=== PATIENT | female | born 1990 | race Two or more races ===

== ENCOUNTER 2017-10-06 15:29 | Emergency (ER) | payer OTHER ==
[~2017-10-06] VITALS: Ht 167.6 cm; Wt 90.7 kg
[2017-10-06] MEDS ORDERED: NKM (16:11)
--- NOTE | 2017-10-06 16:27 | Emergency Room Report ---
History of Present Illness General Chief Complaint: Female Urogenital Problems Source: Patient Present Illness HPI 27-year-old female patient presents ER complaining of vaginal discharge x3 days. Patient being seen in ER for urinary symptoms; reports sexually monogamous relationship. Patient reports green discharge and foul smell. Denies fever, hematuria, frequency, urgency. Denies back pain, abdominal pain, vaginal rash. Reports on control, Implanon. Denies chest pain, SOB, abdominal pain. Allergies: Coded Allergies: No Known Allergies (Unverified , 10/06/17) Patient History Past Medical History: see triage record Last Menstrual Period: FEB 2017 Reviewed Nursing Documentation: PMH: Agreed, PSxH: Agreed Nursing Documentation-PMH Past Medical History: No Stated History Review of Systems All Other Systems: negative except mentioned in HPI Physical Exam Vital Signs Date Time Temp Pulse Resp B/P (MAP) Pulse Ox O2 Delivery O2 Flow Rate FiO2 10/06/17 16:03 98.6 80 16 114/68 98 Room Air 98.6 Sp02 EP Interpretation: reviewed, normal General Appearance: well appearing, no apparent distress, alert, GCS 15 Head: normocephalic, atraumatic Eyes: bilateral eye normal inspection, bilateral eye PERRL ENT: hearing grossly normal, normal pharynx, no angioedema, normal voice, uvula midline, moist mucus membranes Neck: full range of motion Respiratory: lungs clear, normal breath sounds, no rhonchi, no respiratory distress, no accessory muscle use, no wheezing, speaking full sentences Cardiovascular #1: regular rate, rhythm Gastrointestinal: non tender, soft, no mass, non-distended, no guarding, no rebound Genitourinary: no CVA tenderness Musculoskeletal: back normal, digits/nails normal, gait/station normal, normal range of motion, non-tender Neurologic: alert, oriented x3, responsive, motor strength/tone normal, sensory intact Psychiatric: mood/affect normal Skin: no rash Lymphatic: no adenopathy Medical Decision Making PA Attestation Dr. Little is my supervising Physician whom patient management has been discussed with Diagnostic Impression: Primary Impression: Urinary tract infection Additional Impression: Bacterial vaginosis ER Course Pt presents to ED c/o urinary symptoms. DDX considered but are not limited to cystitis, pyelonephritis, STI, vaginitis, , BV. VITAL SIGNS are WNL, patient is afebrile. ORDERS: UA with reflux Urine ER COURSE UA results indicate UTI possible UTI, with symptoms, will treat with abx. Urine negative Discuss results with patient. Will treat bacterial vaginosis symptomatically. Discharge: -Rx provided for Bactrim. -Rx provided for Flagy. Do not drink while on medication. Patient is resting comfortably in chair, nontoxic appearing, in no acute distress. Patient states they feel better and is ready to go home. Will provide with patient care instructions and any necessary prescriptions. Patient encouraged to drink plenty of fluids. Patient to take medication as instructed. Care plan and follow-up instructions provided. Patient questions asked and answered. Reports understanding and agreement to treatment plan. Patient instructed to follow-up with primary care provider in 3 - 5 days for further testing and treatment. May need STI testing. ER precautions given. Patient instructed to return to ER immediately for any new or worsening of symptoms. Including but not limited to fever, worsening pain , intractable vomiting. Labs Test 10/06/17 16:50 Urine Color Pale yellow Urine Appearance Clear Urine pH 7 (4.5-8.0) Urine Specific [place] 1.010 (1.005-1.035) Urine Protein Negative (NEGATIVE) Urine Glucose (UA) Negative (NEGATIVE) Urine Ketones Negative (NEGATIVE) Urine Occult Blood 2+ (NEGATIVE) Urine Nitrite Negative (NEGATIVE) Urine Bilirubin Negative (NEGATIVE) Urine Urobilinogen Normal MG/DL (0.0-1.0) Urine Leukocyte Esterase 1+ (NEGATIVE) Urine RBC 2-4 /HPF (0 - 2) Urine WBC 0-2 /HPF (0 - 2) Urine Squamous Epithelial Cells Few /LPF (NONE/OCC) Urine Bacteria Few /HPF (NONE) Urine HCG, Qualitative Negative Last Vital Signs Date Time Temp Pulse Resp B/P (MAP) Pulse Ox O2 Delivery O2 Flow Rate FiO2 10/06/17 16:03 98.6 80 16 114/68 98 Room Air 98.6 Disposition: HOME, SELF-CARE Condition: Stable Scripts Metronidazole* (FLAGYL*) 500 Mg Tablet 500 MG ORAL EVERY 12 HOURS for 7 Days, #14 TAB Prov: Chip Alcaraz P.A. 10/06/17 Trimethoprim/Sulfamethoxazole 160/800* (BACTRIM DS TABLET*) 1 Each Tablet 1 TAB ORAL TWICE A DAY for 7 Days, #14 TAB Prov: Chip Alcaraz 10/06/17 Patient Instructions: Bacterial Vaginosis, [id number], Urinary Tract Infection Additional Instructions: Followup with primary care provider in 3 -5 days. Do not drink alcohol with Flagyl, will cause adverse reaction. Take medications as directed. Patient questions asked and answered. ER precautions given, patient instructed to return to ER immediately for any new or worsening of symptoms. Chip Alcaraz Oct 06, 2017 16:27
[2017-10-06 17:08] LABS: APPEARANCE,URINE CLEAR; BILIRUBIN, URINE NEGATIVE (NEGATIVE); COLOR,URINE PALE YELLOW; GLUCOSE, URINE (UA) NEGATIVE (NEGATIVE); KETONES,URINE NEGATIVE (NEGATIVE); LEUKOCYTE ESTERASE ,URINE 1+ (NEGATIVE); NITRITE,URINE NEGATIVE (NEGATIVE); PH,URINE 7 (4.5-8.0); PROTEIN,URINE NEGATIVE (NEGATIVE); UROBILINOGEN,URINE NORMAL MG/DL (0.0-1.0)
[2017-10-06] MEDS ORDERED: BACTRIM DS TAB1 EAC1 ORAL (17:13)
[2017-10-06] MEDS ORDERED: METRONIDAZOLE500 MG ORAL (17:13)
[2017-10-06 17:45] VITALS: BP_SYST 114; BP_SYST 119; BP_DIAS 68; BP_DIAS 72
== END 2017-10-06 17:45 | disposition home or self-care (01) ==
LOC: EMR 16:27
DX: N76.0 Acute vaginitis (principal); B96.89 Other specified bacterial agents as the cause of diseases classified elsewhere
CPT/HCPCS: 81003; 81025; 99284

== ENCOUNTER 2017-10-14 18:30 | Emergency (ER) | payer OTHER ==
[~2017-10-14] VITALS: Ht 165.1 cm; Wt 90.7 kg
[~2017-10-14 18:30] MED LIST: BACTRIM DS TAB1 EAC1 ORAL; METRONIDAZOLE500 MG ORAL; NKM
--- NOTE | 2017-10-14 19:01 | Emergency Room Report ---
History of Present Illness General Chief Complaint: General Complaint Source: Patient Present Illness HPI 27-year-old female presents to the emergency department complaining of 10 out of 10 in severity pain in the left breast 2 days. Patient describes pain as burning sensation that radiates towards the armpit on the left side. Patient also reports thickened white nipple discharge. Patient reports that she is not currently breast-feeding but she continues to pump from her left breast twice a week as she continues to produce milk out of [place]. Patient states that her right breast right up shortly after . Patient reports some erythema majority of the tenderness being localized to the left nipple. Denies rashes. She denies fevers or chills however she reports she is beginning to get a headache. Denies CP, Palpitations, LOC, AMS, dizziness, Changes in Vision, Sensation, paresthesias, or a sudden severe headache. Denies familial hx of breast cancer. Allergies: Coded Allergies: No Known Allergies (Unverified , 10/06/17) Patient History Past Medical History: see triage record Past Surgical History: none Pertinent Family History: none Last Menstrual Period: 2014 has norplant Reviewed Nursing Documentation: PMH: Agreed, PSxH: Agreed Nursing Documentation-PMH Past Medical History: No Stated History Review of Systems All Other Systems: negative except mentioned in HPI Physical Exam Vital Signs Date Time Temp Pulse Resp B/P (MAP) Pulse Ox O2 Delivery O2 Flow Rate FiO2 10/14/17 18:35 98.1 77 16 108/64 100 Room Air 98.1 Sp02 EP Interpretation: reviewed, normal General Appearance: no apparent distress, alert, GCS 15, non-toxic Head: normocephalic, atraumatic ENT: hearing grossly normal, normal voice Neck: full range of motion Respiratory: lungs clear, normal breath sounds, speaking full sentences, other - TTP to the ST of the left breast, mild increased warmth to palpation, moderate sensitivity to the left nipple, thickened white d/c is expressed from nipple with moderate manual manipulation by the pt. scant erythema about the nipple. no streaking or LAD. Cardiovascular #1: regular rate, rhythm Gastrointestinal: normal bowel sounds, non tender, soft Rectal: deferred Musculoskeletal: back normal, gait/station normal, normal range of motion, non- tender Neurologic: alert, oriented x3, responsive, motor strength/tone normal, sensory intact, speech normal, grossly normal Psychiatric: judgement/insight normal Skin: no rash, warm/dry, well hydrated, other - Left Breast: mild increased warmth to palpation, moderate sensitivity to the left nipple, thickened white d/ c is expressed from nipple with moderate manual manipulation by the pt. scant erythema about the nipple. no streaking or LAD. Lymphatic: no adenopathy Medical Decision Making PA Attestation Dr. Champion is my supervising Physician whom patient management has been discussed with. Diagnostic Impression: Primary Impression: Mastitis in female ER Course 27-year-old female presents to the emergency department complaining of 10 out of 10 in severity pain in the left breast 2 days. Patient describes pain as burning sensation that radiates towards the armpit on the left side. Patient also reports thickened white nipple discharge. Patient reports that she is not currently breast-feeding but she continues to pump from her left breast twice a week as she continues to produce milk out of [place]. Patient states that her right breast right up shortly after . Patient reports some erythema majority of the tenderness being localized to the left nipple. Denies rashes. She denies fevers or chills however she reports she is beginning to get a headache. Denies CP, Palpitations, LOC, AMS, dizziness, Changes in Vision, Sensation, paresthesias, or a sudden severe headache. Denies familial hx of breast cancer. Ddx considered but are not limited to cellulitis, abscess, mastitis, shingles, malignancy just to name a few. Vital signs: are WNL, pt. is afebrile H&PE are most consistent with mastitis of the left breast. ORDERS: none required at this time, the diagnosis is clinical ED INTERVENTIONS: None required at this time. d/w pt. very important to follow up with PMD and OBGYN. If her symptoms persist she may need breast US. DISCHARGE: At this time pt. is stable for d/c to home. Will provide printed patient care instructions, and any necessary prescriptions. Care plan and follow up instructions have been discussed with the patient prior to discharge. Last Vital Signs Date Time Temp Pulse Resp B/P (MAP) Pulse Ox O2 Delivery O2 Flow Rate FiO2 10/14/17 18:35 98.1 77 16 108/64 100 Room Air 98.1 Disposition: HOME, SELF-CARE Condition: Stable Scripts Hydrocodone Bit/Acetaminophen 5-325* (NORCO 5-325*) 1 Each Tablet 1 TAB ORAL Q6H Y for For Pain, #4 TAB 0 Refills Prov: Twyla Martinez 10/14/17 Ibuprofen* (MOTRIN*) 600 Mg Tablet 600 MG ORAL THREE TIMES A DAY, #20 TAB 0 Refills Prov: Twyla Martinez 10/14/17 Dicloxacillin Sodium (Dicloxacillin Sodium) 500 Mg Capsule 500 MG ORAL Q6H for 7 Days, #28 CAP 0 Refills Prov: Twyla Martinez 10/14/17 Patient Instructions: Mastitis Additional Instructions: Take medications as directed. Follow up with a Primary Care Provider in 3-5 days, even if your symptoms have resolved. --Please review list of primary care clinics, if you do not already have a primary care provider Return sooner to ED if new symptoms occur, or current symptoms become worse. Do not drink alcohol, drive, or operate heavy machinery while taking [place] as this may cause drowsiness. - Please note that this Emergency Department Report was dictated using [employer] technology software, occasionally this can lead to erroneous entry secondary to interpretation by the dictation equipment. Twyla Martinez Oct 14, 2017 19:01
[2017-10-14 19:07] VITALS: BP 108/64
[2017-10-14] MEDS ORDERED: NORCO 5-325 TA1 EACH ORAL (19:11)
[2017-10-14] MEDS ORDERED: DICLOXACILLIN500 MG ORAL (19:11)
[2017-10-14] MEDS ORDERED: IBUPROFEN600 MG ORAL (19:11)
[2017-10-14 19:21] VITALS: BP 108/64
== END 2017-10-14 19:25 | disposition home or self-care (01) ==
LOC: EMR 18:46
DX: N61.0 Mastitis without abscess (principal)
CPT/HCPCS: 99284

== ENCOUNTER 2017-12-22 09:15 | Emergency (ER) | payer OTHER ==
[~2017-12-22] VITALS: Ht 152.4 cm; Wt 77.1 kg
[~2017-12-22 09:15] MED LIST changes: +DICLOXACILLIN500 MG ORAL; +IBUPROFEN600 MG ORAL; +NORCO 5-325 TA1 EACH ORAL
[2017-12-22 09:24] VITALS: BP 122/74
[2017-12-22] MEDS ORDERED: NKM (09:27)
[2017-12-22] MEDS ORDERED: AMOXICILLIN500 MG ORAL (10:06)
[2017-12-22] MEDS ORDERED: PROMETHAZINE-C118 M1 ORAL (10:06)
[2017-12-22 10:12] VITALS: BP 124/71
--- NOTE | 2017-12-22 14:46 | Emergency Room Report ---
History of Present Illness General Chief Complaint: Upper Respiratory Illness Source: Patient Present Illness HPI 27-year-old female presents ED complaining of cough and congestion 3 days. States that her daughter got her sick. Cough is productive with yellowish phlegm. Describes fever and chills. Afebrile in triage. Denies recent travel. No other aggravating relieving factors. Denies any other associated symptoms Allergies: Coded Allergies: No Known Allergies (Unverified , 10/06/17) Patient History Past Medical History: none Past Surgical History: none Pertinent Family History: none Social History: Denies: smoking, alcohol use, drug use Last Menstrual Period: on control pill Now: No Immunizations: UTD Reviewed Nursing Documentation: PMH: Agreed; PSxH: Agreed Nursing Documentation-PMH Past Medical History: No Stated History Review of Systems All Other Systems: negative except mentioned in HPI Physical Exam Vital Signs Date Time Temp Pulse Resp B/P (MAP) Pulse Ox O2 Delivery O2 Flow Rate FiO2 12/22/17 09:24 83 18 Room Air 12/22/17 09:24 98.0 122/74 98 98.1 Sp02 EP Interpretation: reviewed, normal General Appearance: no apparent distress, alert, GCS 15, non-toxic Head: normocephalic, atraumatic Eyes: bilateral eye normal inspection, bilateral eye PERRL ENT: hearing grossly normal, no angioedema, normal voice, pharyngeal erythema Neck: full range of motion, supple/symm/no masses Respiratory: chest non-tender, normal breath sounds, crackles, speaking full sentences Cardiovascular #1: regular rate, rhythm, no edema Cardiovascular #2: 2+ carotid (R), 2+ carotid (L), 2+ radial (R), 2+ radial (L) , 2+ dorsalis pedis (R), 2+ dorsalis pedis (L) Gastrointestinal: normal bowel sounds, non tender, soft, non-distended, no guarding, no rebound Rectal: deferred Genitourinary: normal inspection, no CVA tenderness Musculoskeletal: back normal, gait/station normal, normal range of motion, non- tender Neurologic: alert, oriented x3, responsive, motor strength/tone normal, sensory intact, speech normal Psychiatric: judgement/insight normal, memory normal, mood/affect normal, no suicidal/homicidal ideation Reflexes: 3+ bicep (R), 3+ bicep (L), 3+ tricep (R), 3+ tricep (L), 3+ knee (R) , 3+ knee (L) Skin: normal color, no rash, warm/dry, well hydrated Lymphatic: no adenopathy Medical Decision Making Diagnostic Impression: Primary Impression: Atypical pneumonia ER Course Hospital Course 27-year-old female presents ED complaining of chills, cough Differential diagnoses include: URI, pharyngitis, otitis media, asthma Clinical course Patient placed on stretcher. After initial history, physical exam reveals a female in no acute distress. Bilateral TM unremarkable. + pharyngeal erythema. No tonsillar exudates. No lymphadenopathy. Some crackles in bilateral lower lung erickson While her daughter is also here. Daughter symptoms appear very mild and very typical of a URI. I do not believe the daughter requires any symptomatic treatment. however the mother has a very aggressive cough, with some crackles on exam. We'll treat her for atypical pneumonia Diagnosis - atypical pneumonia Stable and discharged home with Rx amoxicillin, Promethazine/codeine. Instructed to followup with PMD. Return to ED if symptoms recur or worsen Last Vital Signs Date Time Temp Pulse Resp B/P (MAP) Pulse Ox O2 Delivery O2 Flow Rate FiO2 12/22/17 10:12 98.3 80 16 124/71 100 Room Air 98.0 Status: improved Disposition: HOME, SELF-CARE Condition: Stable Scripts Amoxicillin* (AMOXIL*) 500 Mg Capsule 500 MG ORAL THREE TIMES A DAY, #21 CAP Prov: Medhat Little MD 12/22/17 Codeine/Promethazine Hcl* (PROMETHAZINE-CODEINE SYRUP*) 118 Ml Syrup 5 ML ORAL Q6H PRN for For Cough, #118 ML 0 Refills Prov: Medhat Little MD 12/22/17 Patient Instructions: Community-Acquired Pneumonia, Adult, [id number] Medhat Little MD December 22, 2017 14:46
== END 2017-12-22 10:13 | disposition home or self-care (01) ==
LOC: EMR 09:42
DX: J18.9 Pneumonia, unspecified organism (principal)
CPT/HCPCS: 99284

== ENCOUNTER 2017-12-29 19:21 | Emergency (ER) | payer OTHER ==
[~2017-12-29] VITALS: Ht 162.6 cm; Wt 117.9 kg
[~2017-12-29 19:21] MED LIST changes: +AMOXICILLIN500 MG ORAL; +PROMETHAZINE-C118 M1 ORAL
[2017-12-29] MEDS ORDERED: FLUTICASONE PRO16 G1 NASAL (20:05)
[2017-12-29] MEDS ORDERED: TESSALON PERLE100 MG ORAL (20:05)
[2017-12-29] MEDS ORDERED: PROMETHAZINE-C118 M1 ORAL (20:05)
[2017-12-29] MEDS ORDERED: CLARITIN10 M2 ORAL (20:05)
[2017-12-29] MEDS ORDERED: MEDROL4 MG ORAL (20:06)
--- NOTE | 2017-12-29 20:07 | Emergency Room Report ---
History of Present Illness General Chief Complaint: Headache Source: Patient Present Illness HPI 27-year-old female patient presents ER complaining of cough and nasal congestion for the past 3 days. Patient reports that she was seen in the ER week and a half ago for atypical pneumonia, reports she was given cough medication and antibiotics, states she completed both courses. Reports coughing symptoms temporarily improved but have returned. Requesting further cough medication. Denies fever. Denies hemoptysis. Denies history of asthma or other disease. Reports coughing up sputum. Reports cough worse at night. Denies vision changes, chest pain, abdominal pain, vomiting, diarrhea. Denies tinnitus or ear pain. patient reports cough is to headache. reports headache is all over head. Denies calf pain. Allergies: Coded Allergies: No Known Allergies (Unverified , 10/06/17) Patient History Past Medical History: see triage record Reviewed Nursing Documentation: PMH: Agreed; PSxH: Agreed Nursing Documentation-PMH Past Medical History: No Stated History Review of Systems All Other Systems: negative except mentioned in HPI Physical Exam Vital Signs Date Time Temp Pulse Resp B/P (MAP) Pulse Ox O2 Delivery O2 Flow Rate FiO2 12/29/17 19:31 98.9 83 16 96 Room Air 99.0 Sp02 EP Interpretation: reviewed, normal General Appearance: well appearing, no apparent distress, alert, GCS 15, non- toxic Head: normocephalic, atraumatic, other - no maxillary or frontal sinus tenderness to palpation bilaterally Eyes: bilateral eye normal inspection, bilateral eye PERRL ENT: hearing grossly normal, normal pharynx, no angioedema, normal voice, TMs + canals normal, uvula midline, moist mucus membranes, nasal congestion Neck: full range of motion, no meningismus, no bony tend Respiratory: lungs clear, normal breath sounds, no rhonchi, no respiratory distress, no accessory muscle use, no wheezing, speaking full sentences Cardiovascular #1: regular rate, rhythm, no edema Musculoskeletal: back normal, digits/nails normal, gait/station normal, normal range of motion, non-tender, no calf tenderness, Blair's Sign negative Neurologic: alert, oriented x3, responsive, motor strength/tone normal, sensory intact Psychiatric: mood/affect normal Skin: no rash Lymphatic: no adenopathy Medical Decision Making PA Attestation Dr. Atkinson is my supervising Physician whom patient management has been discussed with. Diagnostic Impression: Primary Impression: Nasal congestion Additional Impression: Cough ER Course Pt presents to ED c/o cough and congestion. DDX considered but are not limited to viral URI, strep throat, rhinitis, sinusitis, otitis media. Uvula midline, no stridor, low suspicion for peritonsillar abscess. Patient lungs clear to auscultation, no wheezes, rhonci or rales, no absent breath sounds, no stridor, no tracheal deviation, no SOB. Low suspicion for pneumonia or pneumothorax, will not order CXR at this time. VITAL SIGNS are WNL patient is afebrile Ordered ER COURSE: TMs nonerythematous, no effusion, light reflex intact, no TM perforation, bilaterally. Salt water gargles for sore throat. patient afebrile, lungs clear to auscultation, unlikely symptoms of pneumonia still present from previous visit. Do not believe the patient requires further antibiotic treatment at this time. Due to continued symptoms of cough will provide Medrol Dosepak patient. Consult with Dr. Atkinson, agrees with treatment plan. Symptoms of cough likely related to congestion, cough and congestion likely leading to patient experiencing headache. Do not believe the patient requires further imaging or labs at this time. Will treat patient symptomatically. Patient neurovascularly intact, no nuchal rigidity, does not require CT of head , no focal neural deficits, low suspicion for meningitis. Followup with PCP for further treatment and/or referral as needed. DISCHARGE: -Rx given for Medrol dose pack -Rx given for Loratadine -Rx given for Promethazine with codeine syrup for cough sx. -Rx given for Tessalon pearls take Tylenol for pain and inflammation symptoms. At this time pt is stable for d/c to home. Patient is resting comfortably, in no acute distress, nontoxic appearing. Patient to take medications as instructed Will provide with patient care instructions and any necessary prescriptions. Care plan and follow-up instructions provided. Patient instructed to follow-up with primary care provider in 3 - 5 days. Patient questions asked and answered. Patient reports understanding and agreement to treatment plan. ER precautions given. Patient instructed to return to ER immediately for any new or worsening of symptoms including but not limited to increasing SOB, persistent fever, intractable vomiting. - Please note that this Emergency Department Report was dictated using [employer] sl[employer] technology software, occasionally this can lead to erroneous entry secondary to interpretation by the dictation equipment. Last Vital Signs Date Time Temp Pulse Resp B/P (MAP) Pulse Ox O2 Delivery O2 Flow Rate FiO2 12/29/17 19:31 98.9 83 16 96 Room Air 99.0 Disposition: HOME, SELF-CARE Condition: Stable Scripts Methylprednisolone* (MEDROL*) 4 Mg Tablet 4 MG ORAL DAILY, #10 TAB 0 Refills Prov: Chip Alcaraz 12/29/17 Loratadine (CLARITIN) 10 Mg Capsule 10 MG ORAL DAILY, #20 CAP Prov: Chip Alcaraz 12/29/17 Benzonatate* (TESSALON PERLE*) 100 Mg Capsule 100 MG ORAL THREE TIMES A DAY, #30 PERLE Prov: Chip Alcaraz 12/29/17 Codeine/Promethazine Hcl* (PROMETHAZINE-CODEINE SYRUP*) 118 Ml Syrup 5 ML ORAL Q6H PRN for For Cough, #100 ML 0 Refills Prov: Chip Alcaraz 12/29/17 Patient Instructions: Allergic Rhinitis, Cough, Adult, [id number], Sinus Headache Additional Instructions: Followup with primary care provider in 2-3 days. Take medications as directed. Patient questions asked and answered. ER precautions given, patient instructed to return to ER immediately for any new or worsening of symptoms. Chip Alcaraz Dec 29, 2017 20:07
[2017-12-29] MEDS ORDERED: Promethazine Plain 6.25mg/5ml ORAL ONE (20:15)
[2017-12-29 20:22] VITALS: BP 133/89
[2017-12-29 20:33] VITALS: BP 133/89
== END 2017-12-29 20:25 | disposition home or self-care (01) ==
LOC: EMR 19:52
DX: R09.81 Nasal congestion (principal); R05 Cough
CPT/HCPCS: 99284

== ENCOUNTER 2018-02-26 10:14 | Emergency (ER) | payer OTHER ==
[~2018-02-26] VITALS: Ht 167.6 cm; Wt 86.2 kg
[~2018-02-26 10:14] MED LIST changes: +CLARITIN10 M2 ORAL; +FLUTICASONE PRO16 G1 NASAL; +MEDROL4 MG ORAL; +TESSALON PERLE100 MG ORAL
[2018-02-26] MEDS ORDERED: NKM (10:24)
[2018-02-26 10:32] VITALS: BP 115/67
[2018-02-26 11:02] LABS: BASOPHILS % (AUTO) 1.1 % (0.0-2.0); EOSINOPHILS % (AUTO) 1.1 % (0.0-3.0); HEMOGLOBIN 15.8 G/DL (12.0-16.0); MEAN CORPUSCULAR VOLUME 89 FL (80-99); MONOCYTES % (AUTO) 5.6 % (1.0-10.0); NEUTROPHILS % (AUTO) 55.2 % (45.0-75.0); PLATELET COUNT 220 K/UL (150-450); RED BLOOD COUNT 5.19 M/UL (4.20-5.40); RED CELL DISTRIBUTION WIDTH 10.6 % (11.6-14.8); WHITE BLOOD COUNT 6.6 K/UL (4.8-10.8)
[2018-02-26 11:03] LABS: APPEARANCE,URINE CLEAR; BILIRUBIN, URINE NEGATIVE (NEGATIVE); COLOR,URINE PALE YELLOW; GLUCOSE, URINE (UA) NEGATIVE (NEGATIVE); KETONES,URINE NEGATIVE (NEGATIVE); LEUKOCYTE ESTERASE ,URINE 1+ (NEGATIVE); NITRITE,URINE NEGATIVE (NEGATIVE); PH,URINE 6 (4.5-8.0); PROTEIN,URINE NEGATIVE (NEGATIVE); UROBILINOGEN,URINE NORMAL MG/DL (0.0-1.0)
--- NOTE | 2018-02-26 11:08 | Emergency Room Report ---
History of Present Illness General Chief Complaint: Abdominal Pain Source: Patient Present Illness HPI 27yo F p/w 3 days of epigastric severe, sharp pain, similar to something she had 3 yrs ago. She has also had n/v, but normal BMs, no urinary or gynecologic symptoms, no f/c. She's not tried any meds for it, can't think of alleviating/ exacerbating factors. Allergies: Coded Allergies: No Known Allergies (Unverified , 10/06/17) Patient History Past Medical History: see triage record Now: No Reviewed Nursing Documentation: PMH: Agreed; PSxH: Agreed Nursing Documentation-PMH Past Medical History: No Stated History Review of Systems All Other Systems: negative except mentioned in HPI Physical Exam Vital Signs Date Time Temp Pulse Resp B/P (MAP) Pulse Ox O2 Delivery O2 Flow Rate FiO2 02/26/18 10:18 98.4 66 22 115/67 99 Room Air 98.4 Sp02 EP Interpretation: reviewed, normal General Appearance: no apparent distress, alert, non-toxic Head: normocephalic Eyes: bilateral eye normal inspection, bilateral eye PERRL, bilateral eye EOMI ENT: normal ENT inspection, hearing grossly normal, normal pharynx, no angioedema, normal voice, moist mucus membranes Neck: normal inspection, full range of motion, supple, supple/symm/no masses Respiratory: chest non-tender, lungs clear, normal breath sounds, chest symmetrical, palpation of chest normal Cardiovascular #1: normal peripheral pulses, regular rate, rhythm Cardiovascular #2: 2+ radial (R), 2+ radial (L) Gastrointestinal: normal inspection, soft, no mass, no guarding, no rebound, tenderness - epigastric tenderness Rectal: deferred Genitourinary: normal inspection, no CVA tenderness Musculoskeletal: back normal, gait/station normal, normal range of motion, non- tender, no calf tenderness Neurologic: alert, responsive, machine guide base winder III-XII nml as tested, motor strength/tone normal, sensory intact, speech normal Psychiatric: judgement/insight normal, memory normal, mood/affect normal, no suicidal/homicidal ideation Skin: normal color, no rash, warm/dry, normal turgor Lymphatic: no adenopathy Medical Decision Making Diagnostic Impression: Primary Impression: Fatty liver ER Course Patient well-appearing, minimal epigastric tenderness, UNREMARKABLE LABS UNREMARKABLE BRAIN CT NEGATIVE URINALYSIS UNREMARKABLE, WILL DISCHARGE HOME WITH DIAGNOSIS OF FATTY LIVER, RECOMMEND PMD FOLLOW-UP. CT/MRI/US Diagnostic Results CT/MRI/US Diagnostic Results : Imaging Test Ordered: US limited/abdomen Impression fatty liver, no gallstones, normal GB, normal CBD Last Vital Signs Date Time Temp Pulse Resp B/P (MAP) Pulse Ox O2 Delivery O2 Flow Rate FiO2 02/26/18 10:32 98.4 66 22 115/67 99 Room Air 98.4 Disposition: HOME, SELF-CARE Condition: Stable Referrals: Rafa GARCIA,REFERRING (PCP) KENNY RUIZ M.D Feb 26, 2018 11:08
[2018-02-26 11:26] LABS: ANION GAP 9 mmol/L (5-15); BLOOD UREA NITROGEN 9 mg/dL (7-18); CALCIUM 8.9 MG/DL (8.5-10.1); CARBON DIOXIDE 28 MMOL/L (21-32); CHLORIDE 104 MMOL/L (98-107); CREATININE 0.5 MG/DL (0.55-1.30); POTASSIUM 3.7 MMOL/L (3.5-5.1); SODIUM 141 MMOL/L (136-145)
[2018-02-26 11:31] LABS: ALANINE AMINOTRANSFERASE 43 U/L (12-78); ALKALINE PHOSPHATASE 78 U/L (46-116); ASPARTATE AMINO TRANSFERASE 21 U/L (15-37); BILIRUBIN,TOTAL 0.4 MG/DL (0.2-1.0)
[2018-02-26] MEDS ORDERED: RANITIDINE HCL150 MG ORAL (12:54)
[2018-02-26 13:01] VITALS: BP 118/72
--- NOTE | 2018-02-26 13:03 | Diagnostic Imaging Report ---
Indication: Epigastric pain Technique: US ABD Complete Comparison: None Findings: Imaged portions of the pancreatic head grossly unremarkable. The body and tail are not well seen. Liver is normal in size and contour. Hepatic echogenicity is homogeneous and within normal limits. No focal hepatic mass lesion is appreciated sonographically. No gallstones. Question trace gallbladder sludge versus artifact. There is no gallbladder wall thickening or pericholecystic fluid. Sonographic Ba's Sign reported as negative. There is no intrahepatic or extrahepatic biliary duct dilatation. The common bile duct measures 4 mm. Kidneys are symmetric in size and demonstrate normal echogenicity. There is no hydronephrosis or sonographically appreciable renal stone. Spleen is normal in size and appearance. Visualized portions of the abdominal aorta and IVC unremarkable in size. There is no ascites. IMPRESSION: Question trace gallbladder sludge versus artifact. No sonographic evidence to suggest acute cholecystitis.
== END 2018-02-26 13:02 | disposition home or self-care (01) ==
LOC: EMR 10:33
DX: K76.0 Fatty (change of) liver, not elsewhere classified (principal)
CPT/HCPCS: 36415; 76700; 80053; 81003; 83690; 84702; 85025; 96374; 96375; 99284; J2405; S0028

== ENCOUNTER 2018-11-27 11:18 | Emergency (ER) | payer OTHER ==
[~2018-11-27] VITALS: Ht 160 cm; Wt 86.2 kg
[~2018-11-27 11:18] MED LIST changes: +RANITIDINE HCL150 MG ORAL
[2018-11-27 11:35] VITALS: BP 119/78
--- NOTE | 2018-11-27 11:46 | Emergency Room Report ---
History of Present Illness General Chief Complaint: Pain Source: Patient Present Illness HPI Patient presents with 4-5 days of left knee pain. 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 She had to leave work 2 days ago after only 2 hours because she had too much pain pushing the housekeeping cart that she needs to. She's had problems with her knees in the past but never this severe. She's been taking ibuprofen 600 mg. This has not been helping and she's having difficulty sleeping. She rates the pain 6-8/10. Aching. She denies any swelling in the knee. The anterior portion and the top of the tibia where she feels the pain is not radiating towards her thigh. She denies previous arthritis and also doesn't know she has gout. Her last period was in 2014 before she had an implant after her last child was born. 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 Last Menstrual Period: 2014 Now: No Reviewed Nursing Documentation: PMH: Agreed; PSxH: Agreed Nursing Documentation-PMH Past Medical History: No Stated History Review of Systems All Other Systems: negative except mentioned in HPI Physical Exam Vital Signs Date Time Temp Pulse Resp B/P (MAP) Pulse Ox O2 Delivery O2 Flow Rate FiO2 11/27/18 11:22 97.9 70 19 96 Room Air 11/27/18 11:35 119/78 Sp02 EP Interpretation: reviewed, normal General Appearance: well appearing, no apparent distress Head: normocephalic, atraumatic Eyes: bilateral eye normal inspection, bilateral eye PERRL ENT: hearing grossly normal, normal voice, moist mucus membranes Neck: full range of motion, supple Respiratory: no respiratory distress, speaking full sentences Cardiovascular #1: regular rate, rhythm Cardiovascular #2: 2+ radial (R), 2+ dorsalis pedis (L) Gastrointestinal: normal inspection Genitourinary: no CVA tenderness Musculoskeletal: no calf tenderness, other - Knee ligaments stable with negative drawer or lateral ligament laxity. Apley's compression negative. Anterior inferior patellar ligament is tender without fluctuance, crepitance or erythema. Range of motion is near full except for complete flexion. Neurologic: alert, oriented x3, normal gait, other - Distal neuro normal Psychiatric: mood/affect normal Skin: no rash Medical Decision Making Diagnostic Impression: Primary Impression: Knee strain Qualified Codes: S86.912A - Strain of unspecified muscle(s) and tendon(s) at lower leg level, left leg, initial encounter ER Course The patient presents with left knee pain. Differential includes sprain, strain , gout, osteoarthritis amongst others. X-rays and labs are indicated. Also patient hasn't taken ibuprofen today and so she'll be given a dose. Labs unremarkable. X-ray without effusion and normal bony structures. Delta applied by me with some improvement in symptoms. Distal neurovascular checked by me and normal. Discussed treatment plan. Patient stable for outpatient observation and treatment. Laboratory Tests Test 11/27/18 11:45 White Blood Count 8.3 K/UL (4.8-10.8) Red Blood Count 5.20 M/UL (4.20-5.40) Hemoglobin 16.0 G/DL (12.0-16.0) Hematocrit 46.0 % (37.0-47.0) Mean Corpuscular Volume 88 FL (80-99) Mean Corpuscular Hemoglobin 30.7 PG (27.0-31.0) Mean Corpuscular Hemoglobin Concent 34.7 G/DL (32.0-36.0) Red Cell Distribution Width 10.9 % (11.6-14.8) L Platelet Count 244 K/UL (150-450) Mean Platelet Volume 6.7 FL (6.5-10.1) Neutrophils (%) (Auto) 56.1 % (45.0-75.0) Lymphocytes (%) (Auto) 36.6 % (20.0-45.0) Monocytes (%) (Auto) 5.6 % (1.0-10.0) Eosinophils (%) (Auto) 1.2 % (0.0-3.0) Basophils (%) (Auto) 0.5 % (0.0-2.0) Urine Color Pale yellow Urine Appearance Clear Urine pH 6 (4.5-8.0) Urine Specific [place] 1.015 (1.005-1.035) Urine Protein Negative (NEGATIVE) Urine Glucose (UA) Negative (NEGATIVE) Urine Ketones Negative (NEGATIVE) Urine Blood 2+ (NEGATIVE) H Urine Nitrite Negative (NEGATIVE) Urine Bilirubin Negative (NEGATIVE) Urine Urobilinogen Normal MG/DL (0.0-1.0) Urine Leukocyte Esterase 1+ (NEGATIVE) H Urine RBC 2-4 /HPF (0 - 2) H Urine WBC 0-2 /HPF (0 - 2) Urine Squamous Epithelial Cells Occasional /LPF Urine Bacteria Occasional /HPF (NONE) Sodium Level 141 MMOL/L (136-145) Potassium Level 4.0 MMOL/L (3.5-5.1) Chloride Level 104 MMOL/L (98-107) Carbon Dioxide Level 29 MMOL/L (21-32) Anion Gap 9 mmol/L (5-15) Blood Urea Nitrogen 17 mg/dL (7-18) Creatinine 0.6 MG/DL (0.55-1.30) Estimate Glomerular Filtration Rate > 60 mL/min (>60) Glucose Level 94 MG/DL (74-106) Uric Acid 3.0 MG/DL (2.6-7.2) Calcium Level 8.9 MG/DL (8.5-10.1) Total Bilirubin 0.2 MG/DL (0.2-1.0) Aspartate Amino Transferase (AST) 19 U/L (15-37) Alanine Aminotransferase (ALT) 41 U/L (12-78) Alkaline Phosphatase 107 U/L (46-116) Total Protein 7.9 G/DL (6.4-8.2) Albumin 3.9 G/DL (3.4-5.0) Globulin 4.0 g/dL Albumin/Globulin Ratio 1.0 (1.0-2.7) Other X-Ray Diagnostic Results Other X-Ray Diagnostic Results : X-Ray ordered: Left knee # of Views/Limited Vs Complete: 3 View Indication: Pain EP Interpretation: Yes Interpretation: no dislocation, no soft tissue swelling, no fractures Impression: No acute disease Electronically Signed by: Electronically signed by El Barajas MD Last Vital Signs Date Time Temp Pulse Resp B/P (MAP) Pulse Ox O2 Delivery O2 Flow Rate FiO2 11/27/18 14:30 97.9 70 19 119/78 96 Room Air Status: improved Disposition: HOME, SELF-CARE Condition: Improved Scripts Tramadol Hcl* (ULTRAM*) 50 Mg Tablet 50 MG ORAL Q6H PRN for For Pain, #10 TAB 0 Refills Prov: El Barajas MD 11/27/18 Naproxen* (NAPROXEN*) 375 Mg Tablet. 375 MG ORAL TID, #14 TAB 1 Refill Prov: El Barajas MD 11/27/18 El Barajas MD November 27, 2018 11:46
[2018-11-27 12:00] LABS: APPEARANCE,URINE CLEAR; BASOPHILS % (AUTO) 0.5 % (0.0-2.0); BILIRUBIN, URINE NEGATIVE (NEGATIVE); COLOR,URINE PALE YELLOW; EOSINOPHILS % (AUTO) 1.2 % (0.0-3.0); GLUCOSE, URINE (UA) NEGATIVE (NEGATIVE); KETONES,URINE NEGATIVE (NEGATIVE); LEUKOCYTE ESTERASE ,URINE 1+ (NEGATIVE); LYMPHOCYTES % (AUTO) 36.6 % (20.0-45.0); MEAN CORPUSCULAR VOLUME 88 FL (80-99); MONOCYTES % (AUTO) 5.6 % (1.0-10.0); NEUTROPHILS % (AUTO) 56.1 % (45.0-75.0); NITRITE,URINE NEGATIVE (NEGATIVE); PH,URINE 6 (4.5-8.0); PLATELET COUNT 244 K/UL (150-450); PROTEIN,URINE NEGATIVE (NEGATIVE); RED CELL DISTRIBUTION WIDTH 10.9 % (11.6-14.8); UROBILINOGEN,URINE NORMAL MG/DL (0.0-1.0); WHITE BLOOD COUNT 8.3 K/UL (4.8-10.8)
[2018-11-27 12:10] LABS: ANION GAP 9 mmol/L (5-15); BLOOD UREA NITROGEN 17 mg/dL (7-18); CALCIUM 8.9 MG/DL (8.5-10.1); CARBON DIOXIDE 29 MMOL/L (21-32); CHLORIDE 104 MMOL/L (98-107); CREATININE 0.6 MG/DL (0.55-1.30); SODIUM 141 MMOL/L (136-145)
[2018-11-27 12:14] LABS: ALANINE AMINOTRANSFERASE 41 U/L (12-78); ALBUMIN 3.9 G/DL (3.4-5.0); ALKALINE PHOSPHATASE 107 U/L (46-116); ASPARTATE AMINO TRANSFERASE 19 U/L (15-37); BILIRUBIN,TOTAL 0.2 MG/DL (0.2-1.0)
[2018-11-27] MEDS ORDERED: NAPROXEN375 M2 ORAL (12:48)
[2018-11-27] MEDS ORDERED: TRAMADOL HCL50 MG ORAL (12:48)
--- NOTE | 2018-11-27 13:44 | Diagnostic Imaging Report ---
Indications: Reason For Exam: PAIN Technique: Three views of the left knee Comparison: None Findings: No acute fractures. No dislocations. Joint spaces are preserved. No radiopaque foreign body. Normal mineralization. Impression: No acute process
[2018-11-27 14:30] VITALS: BP 119/78
== END 2018-11-27 14:30 | disposition home or self-care (01) ==
LOC: EMR 11:48
DX: S86.912A Strain of unspecified muscle(s) and tendon(s) at lower leg level, left leg, initial encounter (principal); X58.XXXA Exposure to other specified factors, initial encounter; Y92.9 Unspecified place or not applicable; Y99.0 Civilian activity done for income or pay
CPT/HCPCS: 36415; 80053; 81003; 84550; 85025; 99283

== ENCOUNTER 2018-12-04 21:02 | Emergency (ER) | payer OTHER ==
[~2018-12-04] VITALS: Ht 162.6 cm; Wt 84.4 kg
[~2018-12-04 21:02] MED LIST changes: +NAPROXEN375 M2 ORAL; +TRAMADOL HCL50 MG ORAL
--- NOTE | 2018-12-04 21:15 | NUR ---
ED Nurse Note: Patient walked in to ER from home c/o left ear pain 03/06, deny trauma, discharge. AAO x4, VSS at this time. Skin is dry intact.
[2018-12-04] MEDS ORDERED: CORTISPORIN EAR10 ML LEFT EAR (21:23)
[2018-12-04] MEDS ORDERED: IBUPROFEN600 MG ORAL (21:23)
--- NOTE | 2018-12-04 21:24 | Emergency Room Report ---
History of Present Illness General Chief Complaint: Earache Source: Patient Present Illness HPI Is a 28-year-old female with no significant past medical issue. She presents with chief complaint of left ear pain. Onset for last 2 days. There is some swelling and decreased hearing. No drainage. No fever chills but no nausea no vomiting. Pain is 8 out of 10. Worse with movement. Better with rest. No trauma. Allergies: Coded Allergies: No Known Allergies (Unverified , 10/06/17) Patient History Past Medical History: see triage record, old chart reviewed Past Surgical History: other Pertinent Family History: none Social History: Denies: smoking Last Menstrual Period: 2014 Now: No : 4 Para: 3 Immunizations: other Reviewed Nursing Documentation: PMH: Agreed; PSxH: Agreed Nursing Documentation-PMH Hx Cardiac Problems: No - 2011 Review of Systems Eye: Denies: eye pain, blurred vision ENT: Reports: ear pain; Denies: nose congestion, throat swelling Respiratory: Denies: cough, shortness of breath Cardiovascular: Denies: chest pain, palpitations Gastrointestinal: Denies: abdominal pain, diarrhea, nausea, vomiting Musculoskeletal: Denies: back pain, joint pain Skin: Denies: rash Neurological: Denies: headache, numbness Endocrine: Denies: increased thirst, increased urine Hematologic/Lymphatic: Denies: easy bruising All Other Systems: negative except mentioned in HPI Physical Exam Vital Signs Date Time Temp Pulse Resp B/P (MAP) Pulse Ox O2 Delivery O2 Flow Rate FiO2 12/04/18 21:09 99.0 71 16 96 Room Air vitals unremarkable Sp02 EP Interpretation: reviewed, normal General Appearance: well appearing, no apparent distress, alert Head: normocephalic, atraumatic Eyes: bilateral eye PERRL, bilateral eye EOMI ENT: hearing grossly normal, normal pharynx, other - Left ear: There is edema and erythema to the external canal. TMs normal. No perforation. Neck: full range of motion, supple, no meningismus Respiratory: chest non-tender, lungs clear, normal breath sounds Cardiovascular #1: regular rate, rhythm, no murmur Gastrointestinal: normal bowel sounds, non tender, no mass, no organomegaly, no bruit, non-distended Musculoskeletal: back normal, gait/station normal, normal range of motion Psychiatric: mood/affect normal Skin: warm/dry Medical Decision Making Diagnostic Impression: Primary Impression: Otitis externa, left Qualified Codes: H60.502 - Unspecified acute noninfective otitis externa, left ear ER Course Patient presents with otitis externa. No evidence of any trauma or otitis media. We'll discharge home. Last Vital Signs Date Time Temp Pulse Resp B/P (MAP) Pulse Ox O2 Delivery O2 Flow Rate FiO2 12/04/18 21:09 99.0 71 16 96 Room Air Status: improved Disposition: HOME, SELF-CARE Condition: Stable Scripts Ibuprofen* (MOTRIN*) 600 Mg Tablet 600 MG ORAL THREE TIMES A DAY, #30 TAB 0 Refills Prov: Otis Sandra MD 12/04/18 Neomycin/Polymyxin B Sulf/Hc* (CORTISPORIN EAR SOLUTION*) 10 Ml Solution 4 DROP LEFT EAR QID, #10 ML 0 Refills Prov: Otis Sandra MD 12/04/18 Patient Instructions: Otitis Externa, [id number] Additional Instructions: Follow-up with your doctor in 7 days for recheck. Return if symptom worsen. Otis Sandra MD December 04, 2018 21:24
[2018-12-04 21:25] VITALS: BP 110/74
[2018-12-04] MEDS ORDERED: HYDROcodone/Acetamin 5/325 tab ORAL ONE (21:30)
[2018-12-04 21:32] VITALS: BP 110/74
--- NOTE | 2018-12-04 21:33 | NUR ---
ED Nurse Note: Pt cleared by health care Provider for discharge. DC instructions/prescription was given and explained to pt and verbalized understanding of teachings. All medical deviecs such as ID band removed. Pt is AAO x4, ambulatory and left with all personal belongings.
== END 2018-12-04 21:37 | disposition home or self-care (01) ==
LOC: EMR 21:19
DX: H60.502 Unspecified acute noninfective otitis externa, left ear (principal)
CPT/HCPCS: 99282

== ENCOUNTER 2019-03-08 07:19 | Emergency (ER) | payer OTHER ==
[~2019-03-08] VITALS: Ht 162.6 cm; Wt 72.6 kg
[~2019-03-08 07:19] MED LIST changes: +CORTISPORIN EAR10 ML LEFT EAR
[2019-03-08 07:25] VITALS: BP 114/78
[2019-03-08] MEDS ORDERED: NKM (07:28)
[2019-03-08 07:33] VITALS: BP 114/78
--- NOTE | 2019-03-08 07:34 | NUR ---
ED Nurse Note: Pt came in from home due to L earache x 2 days. Pain 10/10 ramses. AOx4, VSS. Will cont to monitor.
--- NOTE | 2019-03-08 07:35 | NUR ---
ER DISCHARGE NOTE: Patient is cleared to be discharged per ERMD, pt is aox4, on room air, with stable vital signs. pt was given dc and prescription instructions, pt was able to verbalize understanding, pt id band removed. pt is able to ambulate with steady gait. pt took all belongings.
[2019-03-08] MEDS ORDERED: OFLOXACIN5 ML LEFT EAR (07:36)
[2019-03-08] MEDS ORDERED: TYLENOL EXTRA500 MG ORAL (07:36)
--- NOTE | 2019-03-08 08:03 | Emergency Room Report ---
History of Present Illness General Chief Complaint: Earache Source: Patient Present Illness HPI 28-year-old female presents ED for evaluation. Complaining of left ear pain for the last 3 days. Throbbing, 8 out of 10, nonradiating. Denies fevers or chills. Denies cough. States she has had previous ear infection like this. Was prescribed medication states that resolved. Denies sick contacts or recent travel. No other aggravating relieving factors. Denies any other associated symptoms Allergies: Coded Allergies: No Known Allergies (Unverified , 10/06/17) Patient History Past Medical History: none Past Surgical History: none Pertinent Family History: none Social History: Denies: smoking, alcohol use, drug use Last Menstrual Period: on period Now: No Immunizations: UTD Reviewed Nursing Documentation: PMH: Agreed; PSxH: Agreed Nursing Documentation-PMH Past Medical History: No Stated History Hx Cardiac Problems: No - 2011 Review of Systems All Other Systems: negative except mentioned in HPI Physical Exam Vital Signs Date Time Temp Pulse Resp B/P (MAP) Pulse Ox O2 Delivery O2 Flow Rate FiO2 03/08/19 07:25 98.8 70 15 114/78 (90) 99 Room Air Sp02 EP Interpretation: reviewed, normal General Appearance: no apparent distress, alert, GCS 15, non-toxic Head: normocephalic, atraumatic Eyes: bilateral eye normal inspection, bilateral eye PERRL ENT: hearing grossly normal, normal pharynx, no angioedema, normal voice, other - L ear canal erythematous/swollen. TM unremarkable Neck: full range of motion, supple, no meningismus, supple/symm/no masses Respiratory: chest non-tender, lungs clear, normal breath sounds, speaking full sentences Cardiovascular #1: normal inspection Cardiovascular #2: 2+ carotid (R), 2+ carotid (L), 2+ radial (R), 2+ radial (L) , 2+ dorsalis pedis (R), 2+ dorsalis pedis (L) Gastrointestinal: normal inspection, non-distended Rectal: deferred Genitourinary: normal inspection Musculoskeletal: normal inspection, non-tender Neurologic: alert, oriented x3, responsive, motor strength/tone normal, sensory intact, speech normal Psychiatric: judgement/insight normal, memory normal, mood/affect normal, no suicidal/homicidal ideation Reflexes: 3+ bicep (R), 3+ bicep (L), 3+ tricep (R), 3+ tricep (L), 3+ knee (R) , 3+ knee (L) Skin: no rash Lymphatic: no adenopathy Medical Decision Making Diagnostic Impression: Primary Impression: Otitis externa Qualified Codes: H60.502 - Unspecified acute noninfective otitis externa, left ear ER Course Hospital Course 28-year-old F presents to ED with pain L ear. Differential diagnoses include: TM perforation, otitis externa, otitis media Clinical course Patient placed on stretcher. After initial history, physical exam reveals a female in no acute distress. L ear canal swollen/erythematous/TTP. L TM unremarkable. remainder of exam unremarkable discussed with patient. consideration for otitis exxterna. safe for discharge with close outpatient followup. i'll provide referrals. Diagnosis - otitis externa Stable and discharged to home with Rx ofloxacin otic, tylenol. Followup with PMD/ENT. Return to ED if symptoms recur or worsen Last Vital Signs Date Time Temp Pulse Resp B/P (MAP) Pulse Ox O2 Delivery O2 Flow Rate FiO2 03/08/19 07:35 98.8 84 16 114/78 99 Room Air Status: improved Disposition: HOME, SELF-CARE Condition: Stable Scripts Acetaminophen* (TYLENOL EXTRA STRENGTH*) 500 Mg Tablet 500 MG ORAL Q8H PRN for Prn Headache/Temp > 101, #30 TAB 0 Refills Prov: Medhat Little MD 03/08/19 Ofloxacin (OFLOXACIN) 5 Ml Drops 10 DROP LEFT EAR DAILY for 7 Days, ML Prov: Medhat Little MD 03/08/19 Referrals: NON PHYSICIAN (PCP) Roland Limon MD [facility] Patient Instructions: Otitis Externa, [id number] Medhat Little MD Mar 08, 2019 08:03
== END 2019-03-08 07:40 | disposition home or self-care (01) ==
LOC: EMR 07:37
DX: H60.92 Unspecified otitis externa, left ear (principal)
CPT/HCPCS: 99282

== ENCOUNTER 2019-09-25 11:25 | Emergency (ER) | payer OTHER ==
[~2019-09-25] VITALS: Ht 167.6 cm; Wt 68.0 kg
[~2019-09-25 11:25] MED LIST changes: +OFLOXACIN5 ML LEFT EAR; +TYLENOL EXTRA500 MG ORAL
[2019-09-25 12:00] VITALS: BP 109/68
--- NOTE | 2019-09-25 12:00 | NUR ---
ED Nurse Note: Patient walked in from home c/o cough x 1 month. Denies n/v/d. Patient AxO x 4, no s/s of acute distress.
[2019-09-25] MEDS ORDERED: Ipratropium 0.02% Inh Soln 2.5ml UD HHN ONE (12:15)
[2019-09-25] MEDS ORDERED: Albuterol ud Inhalation HHN ONE (12:15)
--- NOTE | 2019-09-25 12:26 | Emergency Room Report ---
History of Present Illness General Chief Complaint: Upper Respiratory Illness Source: Patient Present Illness HPI Patient presents with 1 month of cough. The cough is been keeping her awake at night. When she coughs she has anterior chest pain that is fairly severe. There is no nausea, vomiting or diarrhea. She does not believe she is at this time. She is been treated with antihistamines. She never been told that she has asthma. She denies recent fevers or chills. She has never used an inhaler. The phlegm is white color and thick. She is exposed to dust at her work. No sore throat, palpitations, dysuria, abdominal pain, shortness of breath, joint pain, rashes, depression, anxiety, visual changes, dizziness, headache. Her daughter was seen end of July with febrile illness and upper respiratory infection. She is being seen for a cough at this time. 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 Now: No : 4 Para: 3 Reviewed Nursing Documentation: PMH: Agreed; PSxH: Agreed Nursing Documentation-PMH Past Medical History: No Stated History Hx Cardiac Problems: No - 2011 Review of Systems All Other Systems: negative except mentioned in HPI Physical Exam Vital Signs Date Time Temp Pulse Resp B/P (MAP) Pulse Ox O2 Delivery O2 Flow Rate FiO2 09/25/19 11:41 98.2 70 18 109/68 (82) 98 Room Air Sp02 EP Interpretation: reviewed, normal General Appearance: well appearing, no apparent distress, GCS 15, non-toxic Head: normocephalic Eyes: bilateral eye normal inspection ENT: moist mucus membranes Neck: supple Respiratory: no respiratory distress, wheezing - Posttussive with paroxysms Cardiovascular #1: regular rate, rhythm, no edema Cardiovascular #2: 2+ radial (R) Gastrointestinal: normal inspection, normal bowel sounds, non tender, no mass, non-distended Genitourinary: no CVA tenderness Musculoskeletal: back normal, normal range of motion, no calf tenderness, gait/ station normal Neurologic: alert, oriented x3, normal inspection Psychiatric: mood/affect normal Skin: no rash, warm/dry Medical Decision Making Diagnostic Impression: Primary Impression: Bronchospasm Additional Impression: Cough ER Course Patient presents with new onset bronchospasm. Differential includes asthma, atypical pneumonia, bronchitis allergy amongst others. Clinically the patient does not have a pulmonary embolus. Evaluation with chest x-ray. Patient treated with prednisone and DuoNeb. Chest x-ray clear. Urinalysis with some pyuria but contaminated specimen. Patient improved with breathing treatment and feels shaky. Cough is decreased. Patient taught how to use inhaler. Discussed results with patient. Discussed the need for outpatient follow-up. Discussed urinalysis results. Patient denies dysuria and does not believe she has a UTI. Told will follow up with culture results. Antibiotics not indicated at this time. Patient stable for outpatient observation and treatment. Laboratory Tests Test 09/25/19 12:15 Urine Color Pale yellow Urine Appearance Clear Urine pH 6 (4.5-8.0) Urine Specific [place] 1.015 (1.005-1.035) Urine Protein Negative (NEGATIVE) Urine Glucose (UA) Negative (NEGATIVE) Urine Ketones Negative (NEGATIVE) Urine Blood 2+ (NEGATIVE) H Urine Nitrite Negative (NEGATIVE) Urine Bilirubin Negative (NEGATIVE) Urine Urobilinogen Normal MG/DL (0.0-1.0) Urine Leukocyte Esterase 3+ (NEGATIVE) H Urine RBC 5-10 /HPF (0 - 2) H Urine WBC 10-15 /HPF (0 - 2) H Urine Squamous Epithelial Cells Many /LPF (NONE/OCC) H Urine Bacteria Many /HPF (NONE) H Urine HCG, Qualitative Negative (NEGATIVE) Chest X-Ray Diagnostic Results Chest X-Ray Diagnostic Results : Chest X-Ray Ordered: Yes # of Views/Limited/Complete: 1 View Indication: Shortness of Breath EP Interpretation: Yes Interpretation: no consolidation, no effusion, no pneumothorax Impression: No acute disease Electronically Signed by: Electronically signed by El Barajas MD Last Vital Signs Date Time Temp Pulse Resp B/P (MAP) Pulse Ox O2 Delivery O2 Flow Rate FiO2 09/25/19 13:45 98.2 78 18 109/68 100 Room Air 21 Status: improved Disposition: HOME, SELF-CARE Condition: Improved Scripts Promethazine HCl/Codeine (Prometh-Codein 6.25-10 mg/5 ml) 5 Ml Syrup 5 ML PO Q6HR, #60 ML Prov: El Barajas MD 09/25/19 Prednisone* (PREDNISONE*) 20 Mg Tablet 40 MG ORAL DAILY, #10 TAB Prov: El Barajas MD 09/25/19 Albuterol Sulfate* (ALBUTEROL SULFATE MDI*) 8.5 Gm Hfa.aer.ad 2 PUFF INH Q6H, #1 EA 0 Refills Prov: lE Barajas MD 09/25/19 Referrals: Rafa GARCIA,REFERRING (PCP) El Barajas MD Sep 25, 2019 12:26
[2019-09-25 12:55] LABS: APPEARANCE,URINE CLEAR; BILIRUBIN, URINE NEGATIVE (NEGATIVE); COLOR,URINE PALE YELLOW; GLUCOSE, URINE (UA) NEGATIVE (NEGATIVE); KETONES,URINE NEGATIVE (NEGATIVE); LEUKOCYTE ESTERASE ,URINE 3+ (NEGATIVE); NITRITE,URINE NEGATIVE (NEGATIVE); PH,URINE 6 (4.5-8.0); PROTEIN,URINE NEGATIVE (NEGATIVE); UROBILINOGEN,URINE NORMAL MG/DL (0.0-1.0)
[2019-09-25] MEDS ORDERED: PROMETH-CODEIN 65 ML PO (13:25)
[2019-09-25] MEDS ORDERED: PREDNISONE20 MG ORAL (13:25)
[2019-09-25] MEDS ORDERED: ALBUTEROL SULF8.5 GM INH (13:25)
[2019-09-25 13:45] VITALS: BP 109/68
--- NOTE | 2019-09-25 13:45 | NUR ---
ER DISCHARGE NOTE: Patient cleared for DC by Dr. Barajas, patient AxO x 4, no s/s of acute distress. Patient verbalized understanding of DC instructions. Patient ID band removed. Able to ambulate with steady gait, took all belongings.
--- NOTE | 2019-09-25 14:49 | Diagnostic Imaging Report ---
EXAM: XR Chest, 1 View CLINICAL HISTORY: COUGH TECHNIQUE: Frontal view of the chest. COMPARISON: None FINDINGS: Hardware: None. Lungs/pleura: Normal. No focal consolidation. No pleural effusion or pneumothorax. Heart/mediastinum: Normal. No cardiomegaly. Soft tissues: Unremarkable. Bones: No acute fracture. Upper abdomen: Normal. IMPRESSION: No acute disease identified.
== END 2019-09-25 13:45 | disposition home or self-care (01) ==
LOC: EMR 11:53
DX: J98.01 Acute bronchospasm (principal); R05 Cough
CPT/HCPCS: 71045; 81003; 81025; 87086; J7512; Z7502; 99284

== ENCOUNTER 2020-02-05 19:18 | Emergency (ER) | payer OTHER ==
[~2020-02-05] VITALS: Ht 167.6 cm; Wt 81.6 kg
[~2020-02-05 19:18] MED LIST changes: +ALBUTEROL SULF8.5 GM INH; +PREDNISONE20 MG ORAL; +PROMETH-CODEIN 65 ML PO
--- NOTE | 2020-02-05 19:36 | NUR ---
ED Nurse Note: Patient walked into ED from home c/o abdominal pain for 1 day, states that she has a hx of hernia, came to ED due to worsening of abdominal pain today. Patient rates constant pain at 8/10, denies n/v/d. Patient changed into gown and placed on surveillance system monitor. Urine sample collected and sent to lab. No acute distress noted during assessment.
[2020-02-05 19:38] VITALS: BP 104/80
--- NOTE | 2020-02-05 19:44 | NUR ---
ED Nurse Note: ERMD at bedside
[2020-02-05] MEDS ORDERED: Metoclopramide 10mg/2ml Inj IVP ONE (19:45)
[2020-02-05] MEDS ORDERED: Morphine Sulfate 2mg/ml Inj(IV/IM USE ONLY) IVP ONE (19:45)
[2020-02-05] MEDS ORDERED: DiphenhydrAMINE 50mg/ml Inj IVP ONE (19:45)
[2020-02-05] MEDS ORDERED: Ketorolac 30mg Inj IV ONE (19:45)
[2020-02-05 19:58] LABS: BILIRUBIN, URINE NEGATIVE (NEGATIVE); COLOR,URINE PALE YELLOW; GLUCOSE, URINE (UA) NEGATIVE (NEGATIVE); KETONES,URINE NEGATIVE (NEGATIVE); LEUKOCYTE ESTERASE ,URINE 1+ (NEGATIVE); NITRITE,URINE NEGATIVE (NEGATIVE); PH,URINE 7 (4.5-8.0); PROTEIN,URINE NEGATIVE (NEGATIVE); UROBILINOGEN,URINE NORMAL MG/DL (0.0-1.0)
--- NOTE | 2020-02-05 19:58 | Emergency Room Report ---
History of Present Illness General Chief Complaint: Abdominal Pain Source: Patient Present Illness HPI Patient presents with greater than 24 hours of abdominal pain. She feels this is her hernia. She was due to have surgery in July but because of a chronic cough and possible wheezing this was canceled. This was going to happen at [facility]. She says that she has had intermittent pain in her abdomen. This recently started when she was carrying some heavy groceries to home 2 days ago. The pain has usually resolved but this is been constant. She feels that radiating towards her back behind her bellybutton. She has nausea without any vomiting. She denies any fevers or chills. She was able to move her bowels 2 hours ago. She has had no dysuria. She rates the pain 8-9/10 at this time. She had a CT of the abdomen performed in July. She says the cough is subsequently resolved and she has no wheezing. No sore throat, chest pain, palpitations, dysuria, shortness of breath, joint pain, rashes, depression, anxiety, visual changes, dizziness, headache. 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 Last Menstrual Period: UID Reviewed Nursing Documentation: PMH: Agreed; PSxH: Agreed Nursing Documentation-PMH Past Medical History: No History, Except For Hx Cardiac Problems: No - 2011 Review of Systems All Other Systems: negative except mentioned in HPI Physical Exam Vital Signs Date Time Temp Pulse Resp B/P (MAP) Pulse Ox O2 Delivery O2 Flow Rate FiO2 02/05/20 19:23 98.6 80 18 92/48 (63) 99 Room Air Sp02 EP Interpretation: reviewed, normal General Appearance: well appearing, no apparent distress, GCS 15, obese Head: normocephalic Eyes: bilateral eye normal inspection, bilateral eye PERRL, bilateral eye EOMI ENT: moist mucus membranes Neck: supple Respiratory: lungs clear, normal breath sounds Cardiovascular #1: regular rate, rhythm Cardiovascular #2: 2+ radial (R) Gastrointestinal: normal inspection, normal bowel sounds, non-distended, no guarding, no rebound, tenderness - Hernia, hernia - Umbilical, overweight Genitourinary: no CVA tenderness Musculoskeletal: back normal, normal range of motion, gait/station normal Neurologic: alert, oriented x3, grossly normal Psychiatric: mood/affect normal Skin: no rash, warm/dry Procedures Additional Procedure Procedure Narrative Umbilical hernia reduced with direct pressure by emergency physician. Patient tolerated well. Medical Decision Making Diagnostic Impression: Primary Impression: Abdominal pain Qualified Codes: R10.33 - Periumbilical pain Additional Impressions: Umbilical hernia Qualified Codes: K42.9 - Umbilical hernia without obstruction or gangrene BMI 29.0-29.9,adult ER Course Patient with a history of an umbilical hernia presents with constant pain. Differential includes is strangulation, worsened pain, ischemic bowel, diverticulitis, UTI amongst others. Evaluation with labs. If white count is elevated CT scan will be performed. The patient be treated with analgesia. The hernia will be reduced if possible after analgesia given. Labs with normal white count and CMP. Patient pain improved with analgesia. Hernia reduced see procedure notes. Discussed findings with patient and treatment plan. I strongly suggested return to the surgeon who had planned surgery. Patient stable for outpatient observation and treatment. Laboratory Tests Test 02/05/20 19:30 02/05/20 19:50 Urine Color Pale yellow Urine Appearance Slightly cloudy Urine pH 7 (4.5-8.0) Urine Specific [place] 1.005 (1.005-1.035) Urine Protein Negative (NEGATIVE) Urine Glucose (UA) Negative (NEGATIVE) Urine Ketones Negative (NEGATIVE) Urine Blood 2+ (NEGATIVE) H Urine Nitrite Negative (NEGATIVE) Urine Bilirubin Negative (NEGATIVE) Urine Urobilinogen Normal MG/DL (0.0-1.0) Urine Leukocyte Esterase 1+ (NEGATIVE) H Urine RBC 2-4 /HPF (0 - 2) H Urine WBC 2-4 /HPF (0 - 2) Urine Squamous Epithelial Cells Few /LPF (NONE/OCC) Urine Bacteria Few /HPF (NONE) Urine HCG, Qualitative Negative (NEGATIVE) White Blood Count 7.5 K/UL (4.8-10.8) Red Blood Count 4.98 M/UL (4.20-5.40) Hemoglobin 15.5 G/DL (12.0-16.0) Hematocrit 45.4 % (37.0-47.0) Mean Corpuscular Volume 91 FL (80-99) Mean Corpuscular Hemoglobin 31.1 PG (27.0-31.0) H Mean Corpuscular Hemoglobin Concent 34.1 G/DL (32.0-36.0) Red Cell Distribution Width 11.5 % (11.6-14.8) L Platelet Count 242 K/UL (150-450) Mean Platelet Volume 7.2 FL (6.5-10.1) Neutrophils (%) (Auto) 48.2 % (45.0-75.0) Lymphocytes (%) (Auto) 41.0 % (20.0-45.0) Monocytes (%) (Auto) 7.7 % (1.0-10.0) Eosinophils (%) (Auto) 1.8 % (0.0-3.0) Basophils (%) (Auto) 1.2 % (0.0-2.0) Prothrombin Time Pending Prothrombin Time INR Pending Activated Partial Thromboplast Time Pending Sodium Level 140 MMOL/L (136-145) Potassium Level 3.7 MMOL/L (3.5-5.1) Chloride Level 103 MMOL/L (98-107) Carbon Dioxide Level 27 MMOL/L (21-32) Anion Gap 11 mmol/L (5-15) Blood Urea Nitrogen 8 mg/dL (7-18) Creatinine 0.7 MG/DL (0.55-1.30) Estimated Glomerular Filtration Rate > 60 mL/min (>60) Glucose Level 125 MG/DL (74-106) H Calcium Level 8.4 MG/DL (8.5-10.1) L Total Bilirubin 0.3 MG/DL (0.2-1.0) Aspartate Amino Transferase (AST) 18 U/L (15-37) Alanine Aminotransferase (ALT) 31 U/L (12-78) Alkaline Phosphatase 69 U/L (46-116) Total Protein 7.6 G/DL (6.4-8.2) Albumin 4.0 G/DL (3.4-5.0) Globulin 3.6 g/dL Albumin/Globulin Ratio 1.1 (1.0-2.7) Lipase 120 U/L (73-393) Last Vital Signs Date Time Temp Pulse Resp B/P (MAP) Pulse Ox O2 Delivery O2 Flow Rate FiO2 7/11/20 20:55 98.5 68 14 108/66 99 Room Air Status: improved Disposition: HOME, SELF-CARE Condition: Improved Scripts Acetaminophen With Codeine (T#3) (TYLENOL #3 TAB*) Y Tab 1 TAB ORAL Q8H PRN for For Pain, #6 TAB Prov: El Barajas MD 02/05/20 El Barajas MD Feb 05, 2020 19:58
[2020-02-05 20:03] LABS: APPEARANCE,URINE SLIGHTLY CLOUDY
[2020-02-05 20:25] LABS: BASOPHILS % (AUTO) 1.2 % (0.0-2.0); EOSINOPHILS % (AUTO) 1.8 % (0.0-3.0); HEMATOCRIT 45.4 % (37.0-47.0); HEMOGLOBIN 15.5 G/DL (12.0-16.0); MEAN CORPUSCULAR VOLUME 91 FL (80-99); MONOCYTES % (AUTO) 7.7 % (1.0-10.0); NEUTROPHILS % (AUTO) 48.2 % (45.0-75.0); PLATELET COUNT 242 K/UL (150-450); RED BLOOD COUNT 4.98 M/UL (4.20-5.40); RED CELL DISTRIBUTION WIDTH 11.5 % (11.6-14.8); WHITE BLOOD COUNT 7.5 K/UL (4.8-10.8)
[2020-02-05 20:26] LABS: ANION GAP 11 mmol/L (5-15); BLOOD UREA NITROGEN 8 mg/dL (7-18); CALCIUM 8.4 MG/DL (8.5-10.1); CARBON DIOXIDE 27 MMOL/L (21-32); CHLORIDE 103 MMOL/L (98-107); CREATININE 0.7 MG/DL (0.55-1.30); POTASSIUM 3.7 MMOL/L (3.5-5.1); SODIUM 140 MMOL/L (136-145)
[2020-02-05 20:31] LABS: ALANINE AMINOTRANSFERASE 31 U/L (12-78); ALBUMIN/GLOBULIN RATIO 1.1 (1.0-2.7); ALKALINE PHOSPHATASE 69 U/L (46-116); ASPARTATE AMINO TRANSFERASE 18 U/L (15-37); BILIRUBIN,TOTAL 0.3 MG/DL (0.2-1.0)
[2020-02-05] MEDS ORDERED: ACETAMINOPHEN-1 EAC1 ORAL (20:47)
[2020-02-05 20:55] VITALS: BP 108/66
--- NOTE | 2020-02-05 20:55 | NUR ---
ER DISCHARGE NOTE: Patient is cleared to be discharged per ERMD, pt is aox4, on room air, with stable vital signs. pt was given dc and prescription instructions, pt was able to verbalize understanding, pt id band and iv site removed intact without complications. pt is able to ambulate with steady gait. pt took all belongings. pt stated her is with her to drive her home. patient stable upon discharge.
== END 2020-02-05 20:55 | disposition home or self-care (01) ==
LOC: EMR 20:18
DX: R10.33 Periumbilical pain (principal); K42.9 Umbilical hernia without obstruction or gangrene; E66.9 Obesity, unspecified; Z68.29 Body mass index [BMI] 29.0-29.9, adult
CPT/HCPCS: 36415; 80053; 81003; 81025; 83690; 85025; 85610; 85730; 86850; 86900; 86901; 96361; 96374; 96375; J1200; J1885; J2270; J2765; J7030; S0028; Z7502; 99284

== ENCOUNTER 2020-06-09 13:54 | Emergency (ER) | payer OTHER ==
[~2020-06-09] VITALS: Ht 162.6 cm; Wt 90.7 kg
[~2020-06-09 13:54] MED LIST changes: +ACETAMINOPHEN-1 EAC1 ORAL
[2020-06-09 14:10] VITALS: BP 122/71
--- NOTE | 2020-06-09 14:10 | NUR ---
ED Nurse Note: Pt walked in from c/o abd pain x 3 days. Pt had umbillical hernia surgery on 03/21. Respirations even and unlabored on room air. Vitals stable as documented. A+Ox4, speaking in complete sentences.
[2020-06-09] MEDS ORDERED: Omnipaque-300 100ml vial INJ PRN (14:15)
[2020-06-09] MEDS ORDERED: Morphine Sulfate 2mg/ml Inj(IV/IM USE ONLY) IVP ONE (14:15)
--- NOTE | 2020-06-09 14:17 | Emergency Room Report ---
History of Present Illness General Chief Complaint: Abdominal Pain Source: Patient Present Illness HPI Disclaimer: Please note that this report is being documented using ED01ON technology. This can lead to erroneous entry secondary to incorrect interpretation by the dictating instrument. HPI: 29-year-old female with history of umbilical hernia repair presents for evaluation of abdominal pain. Patient had umbilical hernia repair surgery with mesh at [facility] 2 months ago. 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 States she has been bending over a lot to clean and therefore causing sharp left periumbilical pain that is worse with bending over. Relieved by sitting upright and at rest. Pain is sharp and nonradiating. Denies vomiting or diarrhea. Continues to pass gas. Denies fever or chills. Denies overlying skin changes or bulging. Has not been able to see her surgeon. Has not taken any medication for pain. Otherwise in her normal health and denies cough, shortness of breath, nausea, chest pain, palpitations or other symptoms. No recent trauma reported. PMH: Reviewed PSH: Hernia repair Allergies: Denied Social Hx: Reviewed Allergies: Coded Allergies: No Known Allergies (Unverified , 10/06/17) COVID-19 Screening Contact w/high risk pt: No Experienced COVID-19 symptoms?: No COVID-19 Testing performed PRACTICAL NURSING TEACHER: No Patient History Now: No Nursing Documentation-PMH Past Medical History: No History, Except For Hx Cardiac Problems: No - 2011 Review of Systems All Other Systems: negative except mentioned in HPI Physical Exam Vital Signs Date Time Temp Pulse Resp B/P (MAP) Pulse Ox O2 Delivery O2 Flow Rate FiO2 06/09/20 14:01 98.1 98 18 113/68 (83) 99 Room Air General: Awake and alert, no acute distress HEENT: NC/AT. EOMI. Cardiovascular: RRR. S1 and S2 normal. No murmur appreciated Resp: Normal work of breathing. No cough, wheezing or crackles appreciated Abdomen: Abdomen is soft, nondistended. Tenderness around the umbilicus more centered on the left side. No mass or abdominal wall defect palpable. No overlying skin changes or bulging however patient's body habitus makes abdominal wall evaluation difficult Skin: Intact. No abrasions, laceration or rash over the exposed skin MSK: Normal tone and bulk. Moving all extremities. No obvious deformity. Neuro: Awake and alert. Mentating appropriately. Medical Decision Making Diagnostic Impression: Primary Impression: UTI (urinary tract infection) Additional Impression: Abdominal pain ER Course Is a 29-year-old female with recent umbilical umbilical hernia repair presenting for abdominal pain. Differential includes was not limited to postsurgical pain, postsurgical infection, wound dehiscence, appendicitis, bowel obstruction, mesenteric ischemia, incisional hernia among others. Labs show no white count, normal renal function, and lipase within normal limits. Possible urinary tract infection 3+ leukocyte esterase and WBCs but few bacteria. Will send for culture but treat with Keflex. She received ceftriaxone in the ED. CT scan of the abdomen returned unremarkable. No evidence of intra-abdominal infection or postsurgical complication. Patient will follow up with her surgeon. Pain medi cation provided. Can return with new or worsening symptoms. Stable for outpatient follow-up. She understands and agrees with the treatment plan. Copies of her labs imaging provided. Laboratory Tests Test 06/09/20 14:25 06/09/20 14:30 White Blood Count 8.2 K/UL (4.8-10.8) Red Blood Count 4.80 M/UL (4.20-5.40) Hemoglobin 15.3 G/DL (12.0-16.0) Hematocrit 45.0 % (37.0-47.0) Mean Corpuscular Volume 94 FL (80-99) Mean Corpuscular Hemoglobin 31.8 PG (27.0-31.0) H Mean Corpuscular Hemoglobin Concent 34.0 G/DL (32.0-36.0) Red Cell Distribution Width 11.7 % (11.6-14.8) Platelet Count 216 K/UL (150-450) Mean Platelet Volume 6.4 FL (6.5-10.1) L Neutrophils (%) (Auto) 55.9 % (45.0-75.0) Lymphocytes (%) (Auto) 37.4 % (20.0-45.0) Monocytes (%) (Auto) 5.2 % (1.0-10.0) Eosinophils (%) (Auto) 0.7 % (0.0-3.0) Basophils (%) (Auto) 0.8 % (0.0-2.0) Sodium Level 139 MMOL/L (136-145) Potassium Level 3.5 MMOL/L (3.5-5.1) Chloride Level 104 MMOL/L (98-107) Carbon Dioxide Level 27 MMOL/L (21-32) Anion Gap 8 mmol/L (5-15) Blood Urea Nitrogen 11 mg/dL (7-18) Creatinine 0.8 MG/DL (0.55-1.30) Estimated Glomerular Filtration Rate > 60 mL/min (>60) Glucose Level 129 MG/DL (74-106) H Calcium Level 8.8 MG/DL (8.5-10.1) Total Bilirubin 0.4 MG/DL (0.2-1.0) Aspartate Amino Transferase (AST) 22 U/L (15-37) Alanine Aminotransferase (ALT) 36 U/L (12-78) Alkaline Phosphatase 70 U/L (46-116) Total Protein 7.6 G/DL (6.4-8.2) Albumin 4.0 G/DL (3.4-5.0) Globulin 3.6 g/dL Albumin/Globulin Ratio 1.1 (1.0-2.7) Lipase 85 U/L (73-393) Urine Color Yellow Urine Appearance Slightly cloudy Urine pH 5 (4.5-8.0) Urine Specific [place] 1.025 (1.005-1.035) Urine Protein Negative (NEGATIVE) Urine Glucose (UA) Negative (NEGATIVE) Urine Ketones 2+ (NEGATIVE) H Urine Blood 4+ (NEGATIVE) H Urine Nitrite Negative (NEGATIVE) Urine Bilirubin Negative (NEGATIVE) Urine Urobilinogen Normal MG/DL (0.0-1.0) Urine Leukocyte Esterase 3+ (NEGATIVE) H Urine RBC 2-4 /HPF (0 - 2) H Urine WBC 10-15 /HPF (0 - 2) H Urine Squamous Epithelial Cells Few /LPF (NONE/OCC) Urine Bacteria Few /HPF (NONE) Urine HCG, Qualitative Negative (NEGATIVE) CT/MRI/US Diagnostic Results CT/MRI/US Diagnostic Results : Impression Procedure: CT Abdomen Pelvis w/Contrast Clinical Indication: Abdominal pain Comparison: none Findings: Lack of enteric contrast limits assessment of the GI tract. The appendix is normal. No small bowel distention. No free or loculated intraperitoneal gas or fluid. No evidence of diverticulosis or diverticulitis. Distal esophagus, stomach, duodenum are unremarkable. Infiltration of the fat deep to the umbilicus is likely related to stated clinical history of umbilical hernia repair The liver, gallbladder, bile ducts, pancreas, spleen, adrenals, kidneys are unremarkable. No retroperitoneal or mesenteric mass or adenopathy. No pelvic mass or adenopathy. The included lung bases demonstrate some minimal posterior dependent atelectatic changes. The bones are unremarkable. Impression: Limited assessment of the GI tract, due to lack of enteric contrast administration Essentially unremarkable exam Dictated By: Constantino Garcia MD Electronically Signed By:Constantino Garcia MD Signed Date/Time06/09/20 1706 CC: Dae Thomas MD Last Vital Signs Date Time Temp Pulse Resp B/P (MAP) Pulse Ox O2 Delivery O2 Flow Rate FiO2 06/09/20 14:01 98.1 98 18 113/68 (83) 99 Room Air Disposition: HOME, SELF-CARE Condition: Stable Scripts Cephalexin* (KEFLEX*) 500 Mg Capsule 500 MG ORAL EVERY 12 HOURS for 7 Days, #14 CAP 0 Refills Prov: Dae Thomas MD 06/09/20 Hydrocodone Bit/Acetaminophen 5-325* (NORCO 5-325 TABLET*) 1 Each Tablet 1 TAB ORAL Q6H PRN for FOR PAIN, #12 TAB 0 Refills Prov: Dae Thomas MD 06/09/20 Referrals: Rafa GARCIA,REFERRING (PCP) Dae Thomas MD Jun 09, 2020 14:17
[2020-06-09 14:55] LABS: BILIRUBIN, URINE NEGATIVE (NEGATIVE); GLUCOSE, URINE (UA) NEGATIVE (NEGATIVE); KETONES,URINE 2+ (NEGATIVE); LEUKOCYTE ESTERASE ,URINE 3+ (NEGATIVE); NITRITE,URINE NEGATIVE (NEGATIVE); PH,URINE 5 (4.5-8.0); PROTEIN,URINE NEGATIVE (NEGATIVE); UROBILINOGEN,URINE NORMAL MG/DL (0.0-1.0)
[2020-06-09 14:55] LABS: BASOPHILS % (AUTO) 0.8 % (0.0-2.0); EOSINOPHILS % (AUTO) 0.7 % (0.0-3.0); HEMOGLOBIN 15.3 G/DL (12.0-16.0); LYMPHOCYTES % (AUTO) 37.4 % (20.0-45.0); MEAN CORPUSCULAR VOLUME 94 FL (80-99); MONOCYTES % (AUTO) 5.2 % (1.0-10.0); NEUTROPHILS % (AUTO) 55.9 % (45.0-75.0); PLATELET COUNT 216 K/UL (150-450); RED CELL DISTRIBUTION WIDTH 11.7 % (11.6-14.8); WHITE BLOOD COUNT 8.2 K/UL (4.8-10.8)
[2020-06-09 14:57] LABS: APPEARANCE,URINE SLIGHTLY CLOUDY; COLOR,URINE YELLOW
[2020-06-09 15:26] LABS: ANION GAP 8 mmol/L (5-15); BLOOD UREA NITROGEN 11 mg/dL (7-18); CALCIUM 8.8 MG/DL (8.5-10.1); CARBON DIOXIDE 27 MMOL/L (21-32); CHLORIDE 104 MMOL/L (98-107); CREATININE 0.8 MG/DL (0.55-1.30); POTASSIUM 3.5 MMOL/L (3.5-5.1); SODIUM 139 MMOL/L (136-145)
[2020-06-09 15:32] LABS: ALANINE AMINOTRANSFERASE 36 U/L (12-78); ALBUMIN/GLOBULIN RATIO 1.1 (1.0-2.7); ALKALINE PHOSPHATASE 70 U/L (46-116); ASPARTATE AMINO TRANSFERASE 22 U/L (15-37); BILIRUBIN,TOTAL 0.4 MG/DL (0.2-1.0)
[2020-06-09] MEDS ORDERED: cefTRIAXone 1 GM in NS 55 ML IVPB ONE (15:45)
--- NOTE | 2020-06-09 16:01 | NUR ---
ED Nurse Note: Pt back from CT. no acute distress noted.
--- NOTE | 2020-06-09 17:09 | Diagnostic Imaging Report ---
Clinical Indication: Abdominal pain Technique: No oral contrast utilized, per emergency room physician request IV administration nonionic contrast. Venous phase spiral acquisition obtained through the abdomen and pelvis. Multiplanar reconstructions were generated. Total dose length product 703 mGycm. CTDIvol(s) 13 mGy. Dose reduction achieved using automated exposure control Comparison: none Findings: Lack of enteric contrast limits assessment of the GI tract. The appendix is normal. No small bowel distention. No free or loculated intraperitoneal gas or fluid. No evidence of diverticulosis or diverticulitis. Distal esophagus, stomach, duodenum are unremarkable. Infiltration of the fat deep to the umbilicus is likely related to stated clinical history of umbilical hernia repair The liver, gallbladder, bile ducts, pancreas, spleen, adrenals, kidneys are unremarkable. No retroperitoneal or mesenteric mass or adenopathy. No pelvic mass or adenopathy. The included lung bases demonstrate some minimal posterior dependent atelectatic changes. The bones are unremarkable. Impression: Limited assessment of the GI tract, due to lack of enteric contrast administration Essentially unremarkable exam The CT scanner at [facility] is accredited by the [employer] and the scans are performed using protocols designed to limit radiation exposure to as low as reasonably achievable to attain images of sufficient resolution adequate for diagnostic evaluation.
[2020-06-09] MEDS ORDERED: CEPHALEXIN500 MG ORAL (17:11)
[2020-06-09] MEDS ORDERED: NORCO 5-325 TA1 EAC1 ORAL (17:11)
[2020-06-09 17:25] VITALS: BP 129/75
--- NOTE | 2020-06-09 17:25 | NUR ---
ER DISCHARGE NOTE: Patient is cleared to be discharged per ERMD, pt is aox4, on room air, with stable vital signs. pt was given dc and prescription instructions, pt was able to verbalize understanding, pt id band and iv site removed without complications. pt is able to ambulate with steady gait. pt took all belongings.
== END 2020-06-09 17:25 | disposition home or self-care (01) ==
LOC: EMR 14:13
DX: N39.0 Urinary tract infection, site not specified (principal); R10.9 Unspecified abdominal pain
CPT/HCPCS: 36415; 74177; 80053; 81003; 81025; 83690; 85025; 87086; 96365; 96375; J0696; J2270; J2405; Q9965; Z7502; 99284